=== PATIENT | female | born 1970 | race Caucasian/White ===

== ENCOUNTER 2019-06-05 17:09 | Inpatient (IN) | payer MEDICAID, OTHER ==
[2019-06-05] MEDS ORDERED: Sodium Chloride 0.9% 10 ML Syringe FLUSH PRN (17:36)
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
[2019-06-05] MEDS ORDERED: LORazepam 2 MG/ML SDV IVPUSH PRN (22:30)
[2019-06-05] MEDS: LORazepam 2 MG/ML SDV IVPUSH PRN (22:43)
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
[2019-06-05] MEDS ORDERED: LORazepam 2 MG/ML SDV IVPUSH ONE (23:14)
[2019-06-05] MEDS: Haloperidol Lactate 5 MG/ML SDV IVPUSH PRN (23:35)
[2019-06-05] MEDS ORDERED: Magnesium Sulfate/Water 4 GM in Premix Bag 1 BAG IV ONE (23:49)
[2019-06-06] MEDS: LORazepam 2 MG/ML SDV IVPUSH PRN ×3 (00:42→06:19)
[2019-06-06] MEDS: Haloperidol Lactate 5 MG/ML SDV IVPUSH PRN ×2 (03:37→07:41)
--- NOTE | 2019-06-06 06:43 | CR ---
Chest: Portable view of the chest was obtained. Comparison: No prior chest x-ray. Heart size and mediastinum are normal. Lungs are clear. Bony structures are grossly intact. Impression: 1. Nothing acute is appreciated on portable chest x-ray. Diagnostic code #1
--- NOTE | 2019-06-06 06:43 | CT ---
Head CT Technique: Multiple axial sections through the brain were obtained. Intravenous contrast was not utilized. Comparison: No prior intracranial imaging is available. Findings: Ventricles along with basal cisterns and sulci over the convexities are mildly prominent. No abnormal parenchymal densities are seen. No evidence of intracranial hemorrhage. No midline shift or mass effect is seen. Bone window settings were reviewed which show the mastoid sinuses to appear clear. Visualized paranasal sinuses show nothing acute. No acute calvarial abnormality is identified. Impression: 1. Mild atrophy. No acute intracranial abnormality is seen. Diagnostic code #2 I agree with preliminary report from [facility], finalized on 06/05/19, 7:33 PM Central Time
[2019-06-06] MEDS ORDERED: Enoxaparin 40 MG/0.4 ML Syringe SUBCUT SCH (09:00)
[2019-06-06] MEDS ORDERED: Metoprolol Tartrate 50 MG Tab PO ONE (10:00)
[2019-06-06] MEDS ORDERED: hydrOXYzine HCl 50 MG Tab PO SCH (11:45)
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
[2019-06-06] MEDS: Lisinopril 5 MG Tab PO SCH (12:34)
[2019-06-06] MEDS: busPIRone 15 MG Tab PO SCH ×3 (12:35→20:09)
[2019-06-06] MEDS: hydrOXYzine HCl 25 MG Tab PO SCH ×2 (12:35→20:09)
[2019-06-06] MEDS: Pregabalin 75 MG Cap PO SCH (20:08)
[2019-06-06] MEDS: OLANZapine 5 MG Tab PO SCH (20:08)
[2019-06-06] MEDS: Aspirin 81 MG Tab.EC PO SCH (20:09)
[2019-06-06] MEDS: Metoprolol Tartrate 50 MG Tab PO SCH (20:09)
[2019-06-06] MEDS: Acetaminophen 325 MG Tab PO PRN (20:12)
[2019-06-07] MEDS ORDERED: Potassium Chloride 20 MEQ Tab.ER PO ONE (09:34)
[2019-06-07] MEDS: Pregabalin 75 MG Cap PO SCH ×2 (10:26→20:06)
[2019-06-07] MEDS: Lisinopril 5 MG Tab PO SCH (10:26)
[2019-06-07] MEDS: Metoprolol Tartrate 50 MG Tab PO SCH ×2 (10:26→20:07)
[2019-06-07] MEDS: busPIRone 15 MG Tab PO SCH ×3 (10:26→20:06)
[2019-06-07] MEDS: hydrOXYzine HCl 25 MG Tab PO SCH ×2 (10:26→20:06)
[2019-06-07] MEDS: Aspirin 81 MG Tab.EC PO SCH ×2 (10:27→20:06)
[2019-06-07] MEDS: Acetaminophen 325 MG Tab PO PRN (11:54)
--- NOTE | 2019-06-07 20:03 | PCM.PN ---
- General Info Date of Service: 06/07/19 Admission Dx/Problem (Free Text): Admission Diagnosis/Problem Admission Diagnosis/Problem Altered mental status Subjective Update: Patient states she is feeling well. She received her home meds last night to include olanzapine 15 mg. There was no confusion during our conversation and she was very appropriate. She states that her son and father are trying to make arrangements to pick her up and get her car fixed. Functional Status: Reports: Pain Controlled - Review of Systems General: Reports: No Symptoms HEENT: Reports: No Symptoms Pulmonary: Reports: No Symptoms Cardiovascular: Reports: No Symptoms Gastrointestinal: Reports: No Symptoms Genitourinary: Reports: No Symptoms - Patient Data Vitals - Most Recent: Last Vital Signs Temp 98.6 F 06/07/19 16:03 Pulse 87 06/07/19 16:03 Resp 17 06/07/19 16:03 BP 97/57 L 06/07/19 16:03 Pulse Ox 99 06/07/19 16:03 Weight - Most Recent: 240 lb 6.4 oz I&O - Last 24 Hours: Intake & Output 06/07/19 06/07/19 06/07/19 06:59 14:59 22:59 Intake Total 520 Output Total 300 Balance 220 Lab Results Last 24 Hours: Laboratory Results - last 24 hr 06/07/19 06/07/19 Range/Units 06:32 06:32 WBC 4.83 (3.98-10.04) K/mm3 RBC 4.01 (3.98-5.22) M/mm3 Hgb 12.0 (11.2-15.7) gm/dl Hct 35.0 (34.1-44.9) % MCV 87.3 (79.4-94.8) fl MCH 29.9 (25.6-32.2) pg MCHC 34.3 (32.2-35.5) g/dl RDW Std Deviation 43.2 (36.4-46.3) fL Plt Count 323 (182-369) K/mm3 MPV 9.4 (9.4-12.3) fl Neut % (Auto) 41.6 (34.0-71.1) % Lymph % (Auto) 40.2 (19.3-51.7) % [place] % (Auto) 16.1 H (4.7-12.5) % Eos % (Auto) 2.1 (0.7-5.8) Baso % (Auto) 0.0 L (0.1-1.2) % Neut # (Auto) 2.01 (1.56-6.13) K/mm3 Lymph # (Auto) 1.94 (1.18-3.74) K/mm3 [place] # (Auto) 0.78 H (0.24-0.36) K/mm3 Eos # (Auto) 0.10 (0.04-0.36) K/mm3 Baso # (Auto) 0.00 L (0.01-0.08) K/mm3 Manual Slide Review Abnormal smear Sodium 140 (136-145) mEq/L Potassium 3.4 L (3.5-5.1) mEq/L Chloride 104 (98-107) mEq/L Carbon Dioxide 27 (21-32) mEq/L Anion Gap 12.4 (5-15) BUN 11 (7-18) mg/dL Creatinine 0.9 (0.55-1.02) mg/dL Est Cr Clr Drug Dosing 80.76 mL/min Estimated GFR (MDRD) > 60 (>60) mL/min BUN/Creatinine Ratio 12.2 L (14-18) Glucose 91 (74-106) mg/dL Calcium 9.6 (8.5-10.1) mg/dL Magnesium 2.4 (1.8-2.4) mg/dl Total Bilirubin 0.8 (0.2-1.0) mg/dL AST 13 L (15-37) U/L ALT 23 (14-59) U/L Alkaline Phosphatase 104 (46-116) U/L C-Reactive Protein 2.0 H* (<1.0) mg/dL Total Protein 6.9 (6.4-8.2) g/dl Albumin 3.5 (3.4-5.0) g/dl Globulin 3.4 gm/dL Albumin/Globulin Ratio 1.0 (1-2) Med Orders - Current: Current Medications Acetaminophen (Tylenol) 650 mg PO Q4H PRN PRN Reason: Pain (Mild 1-3)/fever Last Admin: 06/07/19 11:54 Dose: 650 mg Aspirin (Halfprin) 81 mg PO BID [facility] Last Admin: 06/07/19 10:27 Dose: 81 mg Buspirone HCl (Buspar) 15 mg PO TID [facility] Last Admin: 06/07/19 16:09 Dose: 15 mg Haloperidol Lactate (Haldol) 5 mg IVPUSH Q4HR PRN PRN Reason: Anxiety Last Admin: 06/06/19 07:41 Dose: 5 mg Hydroxyzine HCl (Atarax) 25 mg PO BID [facility] Last Admin: 06/07/19 10:26 Dose: 25 mg Lisinopril (Prinivil) 5 mg PO DAILY [facility] Last Admin: 06/07/19 10:26 Dose: 5 mg Lorazepam (Ativan) 1 mg IVPUSH Q2HR PRN PRN Reason: Anxiety Last Admin: 06/06/19 06:19 Dose: 1 mg Metoprolol Tartrate (Lopressor) 50 mg PO BID [facility] Last Admin: 06/07/19 10:26 Dose: 50 mg Olanzapine (Zyprexa) 15 mg PO BEDTIME [facility] Last Admin: 06/06/19 20:08 Dose: 15 mg Pregabalin (Lyrica) 150 mg PO BID [facility] Last Admin: 06/07/19 10:26 Dose: 150 mg Sodium Chloride (Saline Flush) 10 ml FLUSH ASDIRECTED PRN PRN Reason: Keep Vein Open Last Admin: 06/05/19 18:46 Dose: 10 ml Discontinued Medications Enoxaparin Sodium (Lovenox) 40 mg SUBCUT DAILY [facility] Last Admin: 06/06/19 08:34 Dose: Not Given Hydroxyzine HCl (Atarax) 50 mg PO BID [facility] Magnesium Sulfate 4 gm/ Premix 50 mls @ 12.5 mls/hr IV ONETIME ONE Stop: 06/06/19 03:48 Last Admin: 06/06/19 00:14 Dose: 12.5 mls/hr Lorazepam (Ativan) 1 mg IVPUSH Q4H PRN PRN Reason: Anxiety Lorazepam (Ativan) 2 mg IVPUSH ONETIME ONE Stop: 06/05/19 23:15 Last Admin: 06/05/19 23:18 Dose: 2 mg Metoprolol Tartrate (Lopressor) 50 mg PO ONETIME ONE Stop: 06/06/19 10:01 Last Admin: 06/06/19 09:57 Dose: 50 mg Meloxicam 7.5 Mg 0 each PO BID [facility] Potassium Chloride (Klor-Con M20) 40 meq PO ONETIME ONE Stop: 06/07/19 09:35 Last Admin: 06/07/19 10:27 Dose: 40 meq - Exam Quality Assessment: No: Supplemental Oxygen General: Alert, Oriented HEENT: Pupils Equal, Pupils Reactive, EOMI, Mucous Membr. Moist/[address] Neck: Supple Lungs: Clear to Auscultation, Normal Respiratory Effort Cardiovascular: Regular Rate, Regular Rhythm GI/Abdominal Exam: Normal Bowel Sounds, Soft, Non-Tender, No Organomegaly, No Distention, No Abnormal Bruit, No Mass Back Exam: Normal Inspection, Full Range of Motion Skin: Warm, Dry, Intact Wound/Incisions: Healing Well Neurological: No New Focal Deficit Psy/Mental Status: Alert, Normal Affect, Normal Mood - Problem List Review Problem List Initiated/Reviewed/Updated: Yes - My Orders Last 24 Hours: My Active Orders 06/06/19 21:00 Aspirin [Halfprin] 81 mg PO BID Metoprolol Tartrate [Lopressor] 50 mg PO BID OLANZapine [ZyPREXA] 15 mg PO BEDTIME Pregabalin [Lyrica] 150 mg PO BID 06/08/19 05:11 C-REACTIVE PROTEIN [CHEM] AM CBC WITH AUTO DIFF [HEME] AM COMPREHENSIVE METABOLIC PN,CMP [CHEM] AM MAGNESIUM [CHEM] AM - Plan Plan:: Assessment * 49-year-old female with known psychiatric history who run out of medications 13 days prior to admission * Patient has no signs of infection essentially ruling out infectious disease as a cause behavior. * Positive tricyclic antidepressants on urine drug screen. no tricyclics on medication list. * Past medical history significant for bipolar disorder and depression. * Right ankle fracture in short leg cast * Recent right total knee arthroplasty Plan * Transfer to med floor * monitor on telemetry * restart home meds per [facility] medication list * Dr. Stroud consult - patient refused * CBC, CMP, and magnesium in the morning * Regular diet. * PT and OT. * Prescription for olanzapine written and given to perinatal social worker. * Discharge planning and perinatal social worker * VTE prophylaxis with enoxaparin
[2019-06-07] MEDS: OLANZapine 5 MG Tab PO SCH (20:05)
[2019-06-07] MEDS ORDERED: Ibuprofen 600 MG Tab PO PRN (20:32)
[2019-06-08] MEDS: Pregabalin 75 MG Cap PO SCH (08:57)
[2019-06-08] MEDS: Lisinopril 5 MG Tab PO SCH (08:57)
[2019-06-08] MEDS: busPIRone 15 MG Tab PO SCH ×2 (08:57→15:42)
[2019-06-08] MEDS: Aspirin 81 MG Tab.EC PO SCH (08:57)
[2019-06-08] MEDS: Metoprolol Tartrate 50 MG Tab PO SCH (08:57)
[2019-06-08] MEDS: hydrOXYzine HCl 25 MG Tab PO SCH (08:59)
--- NOTE | 2019-06-08 11:42 | PCM.PN ---
- General Info Date of Service: 06/08/19 Subjective Update: Patient evaluated by me at bedside Nursing staff reported no overnight events, tolerating diet, ambulating As per patient she is feeling a lot better, still having some "short term memory issues", slept through the night, is ambulating to and from restroom, tolerating diet. Denies any hallucinations both visual and auditory - Patient Data Vitals - Most Recent: Last Vital Signs Temp 37.2 C 06/08/19 08:30 Pulse 86 06/08/19 08:57 Resp 18 06/08/19 05:48 BP 117/95 H 06/08/19 08:57 Pulse Ox 98 06/08/19 08:30 Weight - Most Recent: 109.044 kg Lab Results Last 24 Hours: Laboratory Results - last 24 hr 06/08/19 06/08/19 Range/Units 05:16 05:16 WBC 4.25 (3.98-10.04) K/mm3 RBC 3.76 L (3.98-5.22) M/mm3 Hgb 11.1 L (11.2-15.7) gm/dl Hct 33.1 L (34.1-44.9) % MCV 88.0 (79.4-94.8) fl MCH 29.5 (25.6-32.2) pg MCHC 33.5 (32.2-35.5) g/dl RDW Std Deviation 44.3 (36.4-46.3) fL Plt Count 327 (182-369) K/mm3 MPV 9.8 (9.4-12.3) fl Neut % (Auto) 37.1 (34.0-71.1) % Lymph % (Auto) 46.4 (19.3-51.7) % [place] % (Auto) 13.9 H (4.7-12.5) % Eos % (Auto) 2.4 (0.7-5.8) Baso % (Auto) 0.0 L (0.1-1.2) % Neut # (Auto) 1.58 (1.56-6.13) K/mm3 Lymph # (Auto) 1.97 (1.18-3.74) K/mm3 [place] # (Auto) 0.59 H (0.24-0.36) K/mm3 Eos # (Auto) 0.10 (0.04-0.36) K/mm3 Baso # (Auto) 0.00 L (0.01-0.08) K/mm3 Sodium 141 (136-145) mEq/L Potassium 3.9 (3.5-5.1) mEq/L Chloride 107 (98-107) mEq/L Carbon Dioxide 25 (21-32) mEq/L Anion Gap 12.9 (5-15) BUN 10 (7-18) mg/dL Creatinine 0.8 (0.55-1.02) mg/dL Est Cr Clr Drug Dosing 90.85 mL/min Estimated GFR (MDRD) > 60 (>60) mL/min BUN/Creatinine Ratio 12.5 L (14-18) Glucose 88 (74-106) mg/dL Calcium 9.3 (8.5-10.1) mg/dL Magnesium 1.9 (1.8-2.4) mg/dl Total Bilirubin 0.6 (0.2-1.0) mg/dL AST 12 L (15-37) U/L ALT 19 (14-59) U/L Alkaline Phosphatase 90 (46-116) U/L C-Reactive Protein 1.5 H* (<1.0) mg/dL Total Protein 6.3 L (6.4-8.2) g/dl Albumin 3.1 L (3.4-5.0) g/dl Globulin 3.2 gm/dL Albumin/Globulin Ratio 1.0 (1-2) - Exam General: Alert, Oriented, Cooperative, No Acute Distress HEENT: Pupils Equal, Pupils Reactive Neck: Supple, No JVD, No Thyromegaly. No: Lymphadenopathy Lungs: Clear to Auscultation, Normal Respiratory Effort. No: Crackles, Rales, Rhonchi, Wheezing Cardiovascular: Regular Rate, Regular Rhythm. No: Murmurs, Gallops, Rubs GI/Abdominal Exam: Normal Bowel Sounds, Soft, Non-Tender, No Distention Neurological: No New Focal Deficit Psy/Mental Status: Alert, Normal Affect, Normal Mood - Plan Plan:: Assessment * 49-year-old female with known psychiatric history who run out of medications 13 days prior to admission * Patient has no signs of infection essentially ruling out infectious disease as a cause behavior. * Positive tricyclic antidepressants on urine drug screen. no tricyclics on medication list. * Past medical history significant for bipolar disorder and depression. * Right ankle fracture in short leg cast * Recent right total knee arthroplasty Plan * Transfer to med floor * monitor on telemetry * restart home meds per [facility] medication list * Dr. Stroud consult - patient refused * CBC, CMP, and magnesium in the morning * Regular diet. * PT and OT. * Prescription for olanzapine written and given to delinquency prevention social worker. * Discharge planning and delinquency prevention social worker * VTE prophylaxis with enoxaparin
--- NOTE | 2019-06-08 18:17 | PCM.DCSUM1 ---
Discharge Summary - Hospital Course HPI Initial Comments: 49-year-old female was brought in by [place] ambulance for confusion. Patient was recently at [facility] after having an ORIF done of her right ankle. She was released a couple of weeks ago. The emergency room physician called the rehabilitation center and apparently she was not acting like this at that time. We were unable to contact her son for clarification. Patient was found incontinent of stool and urine but has no weakness. In the emergency lab work was essentially negative and C-reactive protein was 1.1. EtOH level was 0. Endorsed EtOH ingestion, unknown quantity Urine drug screen was positive for tricyclics. Diagnosis: Stroke: No - Discharge Data Discharge Date: 06/08/19 Discharge Disposition: Home, Self-Care 01 Condition: Good - Referral to Home Health Primary Care Physician: PCP Not In Area - Patient Summary/Data Consults: Consultations 06/05/19 22:04 Consult to Case Management/Gate Supervisor [CONS] Routine 06/05/19 22:37 Consult to Physician [CONS] Routine Hospital Course: Admit to ICU with Ativan for anxiety, patient refused psychiatry consult. Old records were obtained from [facility] in [place], she was in the rehabilitation center for aftercare following a right knee replacement. Ran out of her medications on 24 May and lost her Medicaid. Review of the records from [facility] confirms she has a significant psychiatric disorder with bipolar and major depressive disorder listed. Patient was restarted on home medications and described feeling back at baseline. She was discharged to f/u with PCP and psychiatry in [place]. - Patient Instructions Diet: Usual Diet as Tolerated Activity: As Tolerated Other/Special Instructions: 1. Please follow-up with your primary care physician in 5-7 days. 2. He will need to see his psychiatrist in the next 5-7 days. 3. There have been changes made to home medications. The medications she will be on from now on are: Risperidone (BuSpar), hydroxyzine, olanzapine. 4. As we discussed previously her lisinopril has been discontinued. 5. Please make sure to measure your blood pressure at home and inform her primary care provider if it starts to become elevated (more than 130/90) on a regular basis. 6. It is extremely important that you take all your medications as indicated on discharge, please do so accordingly. 7. Please avoid drinking alcohol, smoking or any illicit drug use - Discharge Plan Prescriptions/Med Rec: busPIRone [Buspar] 15 mg PO TID 30 Days tablet hydrOXYzine HCl [hydrOXYzine] 25 mg PO BID 30 Days tablet Metoprolol Tartrate [Lopressor] 50 mg PO BID #60 tablet OLANZapine [ZyPREXA] 15 mg PO BEDTIME 30 Days tablet Pregabalin [Lyrica] 150 mg PO BID 30 Days capsule Home Medications: Home Meds Hydrocodone/Acetaminophen [Hydrocodon-Acetaminophen 5-325] 1 - 2 tab PO Q4H PRN 06/05/19 [History] Bisacodyl [Dulcolax] 10 mg RECTAL ASDIRECTED PRN 06/06/19 [History] Meloxicam 7.5 mg PO BID 06/06/19 [History] Metoprolol Tartrate [Lopressor] 50 mg PO BID #60 tablet 06/08/19 [Rx] OLANZapine [ZyPREXA] 15 mg PO BEDTIME 30 Days tablet 06/08/19 [Rx] Pregabalin [Lyrica] 150 mg PO BID 30 Days capsule 06/08/19 [Rx] busPIRone [Buspar] 15 mg PO TID 30 Days tablet 06/08/19 [Rx] hydrOXYzine HCl [hydrOXYzine] 25 mg PO BID 30 Days tablet 06/08/19 [Rx] Patient Handouts: Confusion Referrals: PCP,Not In Area [Primary Care Provider] - 06/27/19 9:00 am (appointment has been made for you at [facility] with Dr. Jm Santiago on June 27 at 0900 am.) - Discharge Summary/Plan Comment DC Time >30 min.: Yes - Patient Data Vitals - Most Recent: Last Vital Signs Temp 37.2 C 06/08/19 08:30 Pulse 86 06/08/19 08:57 Resp 18 06/08/19 05:48 BP 117/95 H 06/08/19 08:57 Pulse Ox 98 06/08/19 08:30 Weight - Most Recent: 109.044 kg I&O - Last 24 hours: Intake & Output 06/08/19 06/08/19 06/08/19 06:59 14:59 22:59 Intake Total 1350 240 600 Balance 1350 240 600 Lab Results - Last 24 hrs: Laboratory Results - last 24 hr 06/08/19 06/08/19 Range/Units 05:16 05:16 WBC 4.25 (3.98-10.04) K/mm3 RBC 3.76 L (3.98-5.22) M/mm3 Hgb 11.1 L (11.2-15.7) gm/dl Hct 33.1 L (34.1-44.9) % MCV 88.0 (79.4-94.8) fl MCH 29.5 (25.6-32.2) pg MCHC 33.5 (32.2-35.5) g/dl RDW Std Deviation 44.3 (36.4-46.3) fL Plt Count 327 (182-369) K/mm3 MPV 9.8 (9.4-12.3) fl Neut % (Auto) 37.1 (34.0-71.1) % Lymph % (Auto) 46.4 (19.3-51.7) % [place] % (Auto) 13.9 H (4.7-12.5) % Eos % (Auto) 2.4 (0.7-5.8) Baso % (Auto) 0.0 L (0.1-1.2) % Neut # (Auto) 1.58 (1.56-6.13) K/mm3 Lymph # (Auto) 1.97 (1.18-3.74) K/mm3 [place] # (Auto) 0.59 H (0.24-0.36) K/mm3 Eos # (Auto) 0.10 (0.04-0.36) K/mm3 Baso # (Auto) 0.00 L (0.01-0.08) K/mm3 Sodium 141 (136-145) mEq/L Potassium 3.9 (3.5-5.1) mEq/L Chloride 107 (98-107) mEq/L Carbon Dioxide 25 (21-32) mEq/L Anion Gap 12.9 (5-15) BUN 10 (7-18) mg/dL Creatinine 0.8 (0.55-1.02) mg/dL Est Cr Clr Drug Dosing 90.85 mL/min Estimated GFR (MDRD) > 60 (>60) mL/min BUN/Creatinine Ratio 12.5 L (14-18) Glucose 88 (74-106) mg/dL Calcium 9.3 (8.5-10.1) mg/dL Magnesium 1.9 (1.8-2.4) mg/dl Total Bilirubin 0.6 (0.2-1.0) mg/dL AST 12 L (15-37) U/L ALT 19 (14-59) U/L Alkaline Phosphatase 90 (46-116) U/L C-Reactive Protein 1.5 H* (<1.0) mg/dL Total Protein 6.3 L (6.4-8.2) g/dl Albumin 3.1 L (3.4-5.0) g/dl Globulin 3.2 gm/dL Albumin/Globulin Ratio 1.0 (1-2) Med Orders - Current: Current Medications Acetaminophen (Tylenol) 650 mg PO Q4H PRN PRN Reason: Pain (Mild 1-3)/fever Last Admin: 06/07/19 11:54 Dose: 650 mg Aspirin (Halfprin) 81 mg PO BID [facility] Last Admin: 06/08/19 08:57 Dose: 81 mg Buspirone HCl (Buspar) 15 mg PO TID [facility] Last Admin: 06/08/19 15:42 Dose: 15 mg Haloperidol Lactate (Haldol) 5 mg IVPUSH Q4HR PRN PRN Reason: Anxiety Last Admin: 06/06/19 07:41 Dose: 5 mg Hydroxyzine HCl (Atarax) 25 mg PO BID [facility] Last Admin: 06/08/19 08:59 Dose: 25 mg Ibuprofen (Motrin) 600 mg PO Q6H PRN PRN Reason: Pain Last Admin: 06/08/19 08:58 Dose: 600 mg Lisinopril (Prinivil) 5 mg PO DAILY [facility] Last Admin: 06/08/19 08:57 Dose: 5 mg Lorazepam (Ativan) 1 mg IVPUSH Q2HR PRN PRN Reason: Anxiety Last Admin: 06/06/19 06:19 Dose: 1 mg Metoprolol Tartrate (Lopressor) 50 mg PO BID [facility] Last Admin: 06/08/19 08:57 Dose: 50 mg Olanzapine (Zyprexa) 15 mg PO BEDTIME [facility] Last Admin: 06/07/19 20:05 Dose: 15 mg Pregabalin (Lyrica) 150 mg PO BID [facility] Last Admin: 06/08/19 08:57 Dose: 150 mg Sodium Chloride (Saline Flush) 10 ml FLUSH ASDIRECTED PRN PRN Reason: Keep Vein Open Last Admin: 06/05/19 18:46 Dose: 10 ml Discontinued Medications Enoxaparin Sodium (Lovenox) 40 mg SUBCUT DAILY [facility] Last Admin: 06/06/19 08:34 Dose: Not Given Hydroxyzine HCl (Atarax) 50 mg PO BID [facility] Magnesium Sulfate 4 gm/ Premix 50 mls @ 12.5 mls/hr IV ONETIME ONE Stop: 06/06/19 03:48 Last Admin: 06/06/19 00:14 Dose: 12.5 mls/hr Lorazepam (Ativan) 1 mg IVPUSH Q4H PRN PRN Reason: Anxiety Lorazepam (Ativan) 2 mg IVPUSH ONETIME ONE Stop: 06/05/19 23:15 Last Admin: 06/05/19 23:18 Dose: 2 mg Metoprolol Tartrate (Lopressor) 50 mg PO ONETIME ONE Stop: 06/06/19 10:01 Last Admin: 06/06/19 09:57 Dose: 50 mg Meloxicam 7.5 Mg 0 each PO BID [facility] Potassium Chloride (Klor-Con M20) 40 meq PO ONETIME ONE Stop: 06/07/19 09:35 Last Admin: 06/07/19 10:27 Dose: 40 meq
== END 2019-06-08 18:05 | disposition home or self-care (01) | DRG 885 ==
LOC: JD.ED 17:09 → JD.ICU 21:14 → OBSVTOIN 06-06 14:49 → JD.MS 06-07 18:22
PROVIDERS: ADMIT Family Medicine; ATTEND Family Medicine
DX: F31.9 Bipolar disorder, unspecified (principal); F41.9 Anxiety disorder, unspecified; I10 Essential (primary) hypertension; R15.9 Full incontinence of feces; R32 Unspecified urinary incontinence; K21.9 Gastro-esophageal reflux disease without esophagitis; M19.90 Unspecified osteoarthritis, unspecified site; G89.29 Other chronic pain; M54.9 Dorsalgia, unspecified; G43.909 Migraine, unspecified, not intractable, without status migrainosus; F19.90 Other psychoactive substance use, unspecified, uncomplicated; Z96.651 Presence of right artificial knee joint; Y90.0 Blood alcohol level of less than 20 mg/100 ml; Z88.5 Allergy status to narcotic agent; Z88.8 Allergy status to other drugs, medicaments and biological substances; Z88.0 Allergy status to penicillin; Z79.899 Other long term (current) drug therapy; Z88.2 Allergy status to sulfonamides; Z79.82 Long term (current) use of aspirin
CPT/HCPCS: 36415; 70450; 70450-26; 71045; 71045-26; 80053; 80306; 81001; 82550; 83605; 83735; 84484; 85025; 86140; 93005; 93010; 96365; 96366; 96375; 96376; 99284; 99285-25; A9270-GY; G0378; G0480; J1630; J2060; J3475